=== PATIENT | female | born 1980 | race Caucasian/White ===

== ENCOUNTER 2016-12-12 10:10 | Emergency (ER) | payer MEDICARE, MEDICAID ==
[2016-12-12 10:33] VITALS: BP 141/92
[2016-12-12] MEDS ORDERED: Sodium Chloride 0.9% 1,000 ML IV SCH ×2 (11:00→11:20)
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
[2016-12-12] MEDS ORDERED: Ondansetron 4 MG/2 ML SDV IVPUSH PRN ×2 (11:39→13:34)
[2016-12-12] MEDS ORDERED: diphenhydrAMINE 50 MG/ML SDV IVPUSH ONE (12:12)
== END 2016-12-12 14:05 | disposition left against medical advice (07) ==
LOC: JP.ED 10:10
DX: R41.82 Altered mental status, unspecified (principal); F17.210 Nicotine dependence, cigarettes, uncomplicated; J45.909 Unspecified asthma, uncomplicated; E11.9 Type 2 diabetes mellitus without complications; F41.9 Anxiety disorder, unspecified; F32.9 Major depressive disorder, single episode, unspecified; F90.9 Attention-deficit hyperactivity disorder, unspecified type; Z90.49 Acquired absence of other specified parts of digestive tract; Z79.4 Long term (current) use of insulin; Z79.899 Other long term (current) drug therapy; Z88.8 Allergy status to other drugs, medicaments and biological substances
CPT/HCPCS: 36415; 80048; 80305; 82962; 83036; 85025; 96365; 96366; 96375; 99284; J1200; J2405; J7040

== ENCOUNTER 2017-09-12 15:17 | Inpatient (IN) | payer MEDICARE, MEDICAID ==
[2017-09-12] MEDS ORDERED: fentaNYL/Normal Saline 600 MCG/30 ML PCA Vial IV PRN (15:43)
[2017-09-12] MEDS ORDERED: Naloxone 0.4 MG/ML SDV IV PRN (15:43)
[2017-09-12] MEDS ORDERED: Dextrose 5%-Lactated Ringers 1,000 ML IV SCH (16:00)
[2017-09-12] MEDS ORDERED: SUMAtriptan 50 MG Tab PO PRN (16:09)
[2017-09-12] MEDS ORDERED: HYDROmorphone/Normal Saline 15 MG/30 ML PCA IV PRN (16:12)
--- NOTE | 2017-09-12 16:17 | PCM.SURGPN ---
- General Info Date of Service: 09/12/17 Date of Surgery/Procedure: 09/12/17 POD#: 0 Post-Op Diagnosis: Abscess left breast/axilla with cellulitis. - Patient Data Weight - Most Recent: 184 lb Lab Results Last 24 Hrs: Laboratory Results - last 24 hr 09/12/17 Range/Units 15:57 WBC 7.7 (4.5-11.0) K/uL RBC 4.67 (3.30-5.50) M/uL Hgb 14.9 (12.0-15.0) g/dL Hct 42.4 (36.0-48.0) % MCV 91 (80-98) fL MCH 32 H (27-31) pg MCHC 35 (32-36) % Plt Count 237 (150-400) K/uL Med Orders - Current: Current Medications Alprazolam (Xanax) 1 mg PO TID PRN PRN Reason: ANXIETY Benztropine Mesylate (Cogentin) 2 mg PO BEDTIME JUAN ANTONIO Carbamazepine (Tegretol Tab) 600 mg PO BEDTIME JUAN ANTONIO Hydromorphone HCl (Dilaudid Janitor 15 Mg In Ns 30 Ml) 0 mg IV ASDIRECTED PRN; Protocol PRN Reason: COLLAR WORKER PAIN CONTROL Dextrose/Lactated Ringer's (Dextrose 5%-Lactated Ringers) 1,000 mls @ 50 mls/ hr IV ASDIRECTED JUAN ANTONIO Ceftriaxone Sodium 2 gm/ (Sodium Chloride) 50 mls @ 100 mls/hr IV Q12H JUAN ANTONIO Naloxone HCl (Narcan) 0.1 mg IV ASDIRECTED PRN PRN Reason: RESP DISTRESS Olanzapine (Zyprexa) 15 mg PO BEDTIME JUAN ANTONIO Sumatriptan Succinate (Imitrex) 25 mg PO Q2H PRN PRN Reason: MIGRAINE HEADACHE - Problem List & Annotations (1) Cellulitis SNOMED Code(s): 991581340 Code(s): L03.90 - CELLULITIS, UNSPECIFIED Status: Acute Current Visit: Yes - Problem List Review Problem List Initiated/Reviewed/Updated: Yes - My Orders Last 24 Hours: Active Orders 24 hr Category Date Time Status Patient Status [ADT] Routine ADT 09/12/17 15:40 Active Activity as Tolerated [RC] .Routine Care 09/12/17 15:48 Active Overnight Pulse Oximetry [RC] Click to Edit Care 09/12/17 15:55 Active Vital Signs [RC] Q4H Care 09/12/17 15:48 Active Regular Diet [DIET] Diet 09/12/17 Dinner Active CBC W/O DIFF,HEMOGRAM [HEME] DAILY Lab 09/13/17 05:00 Ordered CBC W/O DIFF,HEMOGRAM [HEME] DAILY Lab 09/14/17 05:00 Ordered CBC W/O DIFF,HEMOGRAM [HEME] DAILY Lab 09/15/17 05:00 Ordered CBC W/O DIFF,HEMOGRAM [HEME] DAILY Lab 09/16/17 05:00 Ordered CBC W/O DIFF,HEMOGRAM [HEME] DAILY Lab 09/17/17 05:00 Ordered CBC W/O DIFF,HEMOGRAM [HEME] DAILY Lab 09/18/17 05:00 Ordered COMPREHENSIVE METABOLIC PN,CMP [CHEM] DAILY Lab 09/13/17 05:00 Ordered COMPREHENSIVE METABOLIC PN,CMP [CHEM] DAILY Lab 09/14/17 05:00 Ordered COMPREHENSIVE METABOLIC PN,CMP [CHEM] DAILY Lab 09/15/17 05:00 Ordered COMPREHENSIVE METABOLIC PN,CMP [CHEM] DAILY Lab 09/16/17 05:00 Ordered COMPREHENSIVE METABOLIC PN,CMP [CHEM] DAILY Lab 09/17/17 05:00 Ordered COMPREHENSIVE METABOLIC PN,CMP [CHEM] DAILY Lab 09/18/17 05:00 Ordered COMPREHENSIVE METABOLIC PN,CMP [CHEM] Routine Lab 09/12/17 15:57 Received ALPRAZolam [Xanax] Med 09/12/17 16:02 Active 1 mg PO TID PRN Benztropine [Cogentin] Med 09/12/17 21:00 Active 2 mg PO BEDTIME Dextrose 5%-Lactated Ringers 1,000 ml Med 09/12/17 16:00 Active IV ASDIRECTED HYDROmorphone/Normal Saline [Dilaudid COLLAR WORKER 15 MG in NS Med 09/12/17 16:12 Active 30 ML] 0 mg IV ASDIRECTED PRN Naloxone [Narcan] Med 09/12/17 15:43 Active 0.1 mg IV ASDIRECTED PRN OLANZapine [ZyPREXA] Med 09/12/17 21:00 Active 15 mg PO BEDTIME SUMAtriptan [Imitrex] Med 09/12/17 16:09 Active 25 mg PO Q2H PRN carBAMazepine [TEGretol Tab] Med 09/12/17 21:00 Active 600 mg PO BEDTIME cefTRIAXone [Rocephin] 2 gm Med 09/12/17 17:00 Active Sodium Chloride 0.9% [Normal Saline] 50 ml IV Q12H Pulse Oximetry Continuous Monitoring [OM.PC] Routine Oth 09/12/17 15:48 Ordered Resuscitation Status Routine Resus Stat 09/12/17 15:48 Ordered Medication Orders Alprazolam (Xanax) 1 mg PO TID PRN PRN Reason: ANXIETY Benztropine Mesylate (Cogentin) 2 mg PO BEDTIME JUAN ANTONIO Carbamazepine (Tegretol Tab) 600 mg PO BEDTIME JUAN ANTONIO Hydromorphone HCl (Dilaudid Janitor 15 Mg In Ns 30 Ml) 0 mg IV ASDIRECTED PRN; Protocol PRN Reason: COLLAR WORKER PAIN CONTROL Dextrose/Lactated Ringer's (Dextrose 5%-Lactated Ringers) 1,000 mls @ 50 mls/ hr IV ASDIRECTED JUAN ANTONIO Ceftriaxone Sodium 2 gm/ (Sodium Chloride) 50 mls @ 100 mls/hr IV Q12H JUAN ANTONIO Naloxone HCl (Narcan) 0.1 mg IV ASDIRECTED PRN PRN Reason: RESP DISTRESS Olanzapine (Zyprexa) 15 mg PO BEDTIME JUAN ANTONIO Sumatriptan Succinate (Imitrex) 25 mg PO Q2H PRN PRN Reason: MIGRAINE HEADACHE - Assessment Assessment (Free Text/Narrative):: Abscess with cellulitis left breast/axilla. - Plan Plan (Free Text/Narrative):: See the H & P scanned in from yesterday. She failed outpatient treatment so is admitted for IV Vancomycin and Rocephin. She is growing Staphylococcus aureus.
[2017-09-12] MEDS: cefTRIAXone 2 GM in Sodium Chloride 0.9% 50 ML IV SCH (17:07)
[2017-09-12] MEDS: Benztropine 1 MG Tab PO SCH (20:25)
[2017-09-12] MEDS: OLANZapine 5 MG Tab PO SCH (20:26)
[2017-09-12] MEDS: carBAMazepine 200 MG Tab PO SCH (20:26)
[2017-09-12] MEDS: QUEtiapine 100 MG Tab PO SCH (20:28)
[2017-09-12] MEDS: Nicotine 21 MG/24 Hr Patch TRDERM SCH (21:16)
[2017-09-13] MEDS: cefTRIAXone 2 GM in Sodium Chloride 0.9% 50 ML IV SCH (04:44)
--- NOTE | 2017-09-13 07:54 | PCM.SURGPN ---
- General Info Date of Service: 09/13/17 Date of Surgery/Procedure: 09/12/17 POD#: 1 Post-Op Diagnosis: Hidradenitis supurativa left axilla with cellulitis and abscess Functional Status: Reports: Pain Controlled, Tolerating Diet, Ambulating, Urinating - Review of Systems General: Reports: No Symptoms HEENT: Reports: No Symptoms Pulmonary: Reports: No Symptoms Cardiovascular: Reports: No Symptoms Gastrointestinal: Reports: No Symptoms Genitourinary: Reports: No Symptoms Musculoskeletal: Reports: No Symptoms Skin: Reports: Other (Pain in her left axilla is improved and does not bother her unless she moves. ) Neurological: Reports: No Symptoms Psychiatric: Reports: No Symptoms - Patient Data Vitals - Most Recent: Last Vital Signs Temp 97.3 F 09/13/17 07:13 Pulse 122 H 09/13/17 07:13 Resp 16 09/13/17 07:13 BP 118/82 09/13/17 07:13 Pulse Ox 90 L 09/13/17 07:30 Weight - Most Recent: 184 lb I&O - Last 24 Hours: Intake & Output 09/12/17 09/13/17 09/13/17 22:59 06:59 14:59 Intake Total 250 2358 Balance 250 2358 Lab Results Last 24 Hrs: Laboratory Results - last 24 hr 09/12/17 09/12/17 09/13/17 Range/Units 15:57 15:57 05:34 WBC 7.7 4.1 L (4.5-11.0) K/uL RBC 4.67 4.48 (3.30-5.50) M/uL Hgb 14.9 14.1 (12.0-15.0) g/dL Hct 42.4 41.2 (36.0-48.0) % MCV 91 92 (80-98) fL MCH 32 H 32 H (27-31) pg MCHC 35 34 (32-36) % Plt Count 237 234 (150-400) K/uL Sodium 133 L (140-148) mmol/L Potassium 3.7 (3.6-5.2) mmol/L Chloride 99 L (100-108) mmol/L Carbon Dioxide 22 (21-32) mmol/L Anion Gap 15.7 H (5.0-14.0) mmol/L BUN 4 L (7-18) mg/dL Creatinine 0.6 (0.6-1.0) mg/dL Est Cr Clr Drug Dosing 123.63 mL/min Estimated GFR (MDRD) > 60 (>60) Glucose 291 H (74-106) mg/dL Calcium 8.1 L (8.5-10.1) mg/dL Total Bilirubin 0.3 (0.2-1.0) mg/dL AST 16 (15-37) U/L ALT 20 (12-78) U/L Alkaline Phosphatase 168 H (46-116) U/L Total Protein 7.4 (6.4-8.2) g/dL Albumin 3.2 L (3.4-5.0) g/dL Globulin 4.2 H (2.3-3.5) g/dL Albumin/Globulin Ratio 0.8 L (1.2-2.2) 09/13/17 Range/Units 05:34 WBC (4.5-11.0) K/uL RBC (3.30-5.50) M/uL Hgb (12.0-15.0) g/dL Hct (36.0-48.0) % MCV (80-98) fL MCH (27-31) pg MCHC (32-36) % Plt Count (150-400) K/uL Sodium 135 L (140-148) mmol/L Potassium 4.2 (3.6-5.2) mmol/L Chloride 99 L (100-108) mmol/L Carbon Dioxide 27 (21-32) mmol/L Anion Gap 13.2 (5.0-14.0) mmol/L BUN 9 D (7-18) mg/dL Creatinine 0.6 (0.6-1.0) mg/dL Est Cr Clr Drug Dosing 123.30 mL/min Estimated GFR (MDRD) > 60 (>60) Glucose 326 H (74-106) mg/dL Calcium 8.3 L (8.5-10.1) mg/dL Total Bilirubin 0.4 (0.2-1.0) mg/dL AST 708 H D (15-37) U/L ALT 410 H (12-78) U/L Alkaline Phosphatase 635 H D (46-116) U/L Total Protein 6.7 (6.4-8.2) g/dL Albumin 2.8 L (3.4-5.0) g/dL Globulin 3.9 H (2.3-3.5) g/dL Albumin/Globulin Ratio 0.7 L (1.2-2.2) Med Orders - Current: Current Medications Alprazolam (Xanax) 1 mg PO TID PRN PRN Reason: ANXIETY Benztropine Mesylate (Cogentin) 2 mg PO BEDTIME [facility] Last Admin: 09/12/17 20:25 Dose: 2 mg Carbamazepine (Tegretol Tab) 600 mg PO BEDTIME [facility] Last Admin: 09/12/17 20:26 Dose: 600 mg Hydromorphone HCl (Dilaudid Phlebotomy Specialist 15 Mg In Ns 30 Ml) 0 mg IV ASDIRECTED PRN; Protocol PRN 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: PLUSH DRESSER 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 Last Admin: 09/12/17 16:23 Dose: 15 mg Dextrose/Lactated Ringer's (Dextrose 5%-Lactated Ringers) 1,000 mls @ 50 mls/ hr IV ASDIRECTED [facility] Ceftriaxone Sodium 2 gm/ (Sodium Chloride) 50 mls @ 100 mls/hr IV Q12H [facility] Last Admin: 09/13/17 04:44 Dose: 100 mls/hr Vancomycin HCl 1.25 gm/ Sodium (Chloride) 250 mls @ 167 mls/hr IV Q12H [facility] Last Admin: 09/13/17 05:47 Dose: 167 mls/hr Influenza Virus Vaccine (Fluzone Quad [id number]) 60 mcg IM .ONCE ONE Stop: 09/13/17 09:01 Naloxone HCl (Narcan) 0.1 mg IV ASDIRECTED PRN PRN Reason: RESP DISTRESS Nicotine (Habitrol) 21 mg TRDERM DAILY [facility] Last Admin: 09/12/17 21:16 Dose: 21 mg Olanzapine (Zyprexa) 15 mg PO BEDTIME [facility] Last Admin: 09/12/17 20:26 Dose: 15 mg Pneumococcal Polyvalent Vaccine (Pneumovax 23) 0.5 ml IM .ONCE ONE Stop: 09/15/17 09:01 Quetiapine Fumarate (Seroquel) 600 mg PO BEDTIME [facility] Last Admin: 09/12/17 20:28 Dose: 600 mg Quetiapine Fumarate (Seroquel) 200 mg PO BEDTIME [facility] Last Admin: 09/12/17 20:28 Dose: 200 mg Sumatriptan Succinate (Imitrex) 25 mg PO Q2H PRN PRN Reason: MIGRAINE HEADACHE Discontinued Medications Vancomycin HCl 1.5 gm/ Sodium (Chloride) 250 mls @ 167 mls/hr IV ONETIME ONE Stop: 09/12/17 19:29 Last Admin: 09/12/17 18:59 Dose: 167 mls/hr Influenza Virus Vaccine (Pharmacy To Dose - Influenza Vaccine) 1 each IM ONETIME ONE Stop: 09/15/17 09:01 - Exam Wound/Incisions: Drainage, Erythema Improving General: Alert, Oriented, Cooperative, No Acute Distress Lungs: Clear to Auscultation, Normal Respiratory Effort Cardiovascular: Regular Rate, Regular Rhythm GI/Abdominal Exam: Normal Bowel Sounds, Soft, Non-Tender Skin: Warm, Dry, Other (Packing removed from left axilla. No bleeding. Begin BID local wound care. ) Psy/Mental Status: Alert, Normal Affect, Normal Mood - Problem List & Annotations (1) Cellulitis SNOMED Code(s): 020457313 Code(s): L03.90 - CELLULITIS, UNSPECIFIED Status: Acute Current Visit: Yes - Problem List Review Problem List Initiated/Reviewed/Updated: Yes - My Orders Last 24 Hours: Active Orders 24 hr Category Date Time Status Patient Status [ADT] Routine ADT 09/12/17 15:40 Active Activity as Tolerated [RC] .Routine Care 09/12/17 15:48 Active Overnight Pulse Oximetry [RC] Click to Edit Care 09/12/17 15:55 Active Vital Signs [RC] Q4H Care 09/12/17 15:48 Active Regular Diet [DIET] Diet 09/12/17 Dinner Active CBC W/O DIFF,HEMOGRAM [HEME] DAILY Lab 09/14/17 05:00 Ordered CBC W/O DIFF,HEMOGRAM [HEME] DAILY Lab 09/15/17 05:00 Ordered CBC W/O DIFF,HEMOGRAM [HEME] DAILY Lab 09/16/17 05:00 Ordered CBC W/O DIFF,HEMOGRAM [HEME] DAILY Lab 09/17/17 05:00 Ordered CBC W/O DIFF,HEMOGRAM [HEME] DAILY Lab 09/18/17 05:00 Ordered COMPREHENSIVE METABOLIC PN,CMP [CHEM] DAILY Lab 09/14/17 05:00 Ordered COMPREHENSIVE METABOLIC PN,CMP [CHEM] DAILY Lab 09/15/17 05:00 Ordered COMPREHENSIVE METABOLIC PN,CMP [CHEM] DAILY Lab 09/16/17 05:00 Ordered COMPREHENSIVE METABOLIC PN,CMP [CHEM] DAILY Lab 09/17/17 05:00 Ordered COMPREHENSIVE METABOLIC PN,CMP [CHEM] DAILY Lab 09/18/17 05:00 Ordered VANCOMYCIN TROUGH [CHEM] Timed Lab 09/14/17 05:30 Ordered ALPRAZolam [Xanax] Med 09/12/17 16:02 Active 1 mg PO TID PRN Benztropine [Cogentin] Med 09/12/17 21:00 Active 2 mg PO BEDTIME Dextrose 5%-Lactated Ringers 1,000 ml Med 09/12/17 16:00 Active IV ASDIRECTED FLU Vacc [id number] 36Mos UP/PF [Fluzone Quad [id number]] Med 09/13/17 09:00 Once 60 mcg IM .ONCE ONE HYDROmorphone/Normal Saline [Dilaudid PLUSH DRESSER 15 MG in NS Med 09/12/17 16:12 Active 30 ML] 0 mg IV ASDIRECTED PRN Naloxone [Narcan] Med 09/12/17 15:43 Active 0.1 mg IV ASDIRECTED PRN Nicotine [Habitrol] Med 09/12/17 20:45 Active 21 mg TRDERM DAILY OLANZapine [ZyPREXA] Med 09/12/17 21:00 Active 15 mg PO BEDTIME Pneumococcal Polyvalent-23 Vac [Pneumovax 23] Med 09/15/17 09:00 Once 0.5 ml IM .ONCE ONE QUEtiapine [SEROquel] Med 09/12/17 21:00 Active 200 mg PO BEDTIME QUEtiapine [SEROquel] Med 09/12/17 21:00 Active 600 mg PO BEDTIME SUMAtriptan [Imitrex] Med 09/12/17 16:09 Active 25 mg PO Q2H PRN Vancomycin 1.25 gm Med 09/13/17 06:00 Active Sodium Chloride 0.9% [Normal Saline] 250 ml IV Q12H carBAMazepine [TEGretol Tab] Med 09/12/17 21:00 Active 600 mg PO BEDTIME cefTRIAXone [Rocephin] 2 gm Med 09/12/17 17:00 Active Sodium Chloride 0.9% [Normal Saline] 50 ml IV Q12H Pulse Oximetry Continuous Monitoring [OM.PC] Routine Oth 09/12/17 15:48 Ordered Resuscitation Status Routine Resus Stat 09/12/17 15:48 Ordered Medication Orders Alprazolam (Xanax) 1 mg PO TID PRN PRN Reason: ANXIETY Benztropine Mesylate (Cogentin) 2 mg PO BEDTIME [facility] Last Admin: 09/12/17 20:25 Dose: 2 mg Carbamazepine (Tegretol Tab) 600 mg PO BEDTIME [facility] Last Admin: 09/12/17 20:26 Dose: 600 mg Hydromorphone HCl (Dilaudid Phlebotomy Specialist 15 Mg In Ns 30 Ml) 0 mg IV ASDIRECTED PRN; Protocol PRN 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: PLUSH DRESSER PAIN 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 Last Admin: 09/12/17 16:23 Dose: 15 mg Dextrose/Lactated Ringer's (Dextrose 5%-Lactated Ringers) 1,000 mls @ 50 mls/ hr IV ASDIRECTED JUAN ANTONIO Ceftriaxone Sodium 2 gm/ (Sodium Chloride) 50 mls @ 100 mls/hr IV Q12H [facility] Last Admin: 09/13/17 04:44 Dose: 100 mls/hr Admin: 09/12/17 17:07 Dose: 100 mls/hr Vancomycin HCl 1.25 gm/ Sodium (Chloride) 250 mls @ 167 mls/hr IV Q12H [facility] Last Admin: 09/13/17 05:47 Dose: 167 mls/hr Influenza Virus Vaccine (Fluzone Quad [id number]) 60 mcg IM .ONCE ONE Stop: 09/13/17 09:01 Naloxone HCl (Narcan) 0.1 mg IV ASDIRECTED PRN PRN Reason: RESP DISTRESS Nicotine (Habitrol) 21 mg TRDERM DAILY [facility] Last Admin: 09/12/17 21:16 Dose: 21 mg Olanzapine (Zyprexa) 15 mg PO BEDTIME [facility] Last Admin: 09/12/17 20:26 Dose: 15 mg Pneumococcal Polyvalent Vaccine (Pneumovax 23) 0.5 ml IM .ONCE ONE Stop: 09/15/17 09:01 Quetiapine Fumarate (Seroquel) 600 mg PO BEDTIME [facility] Last Admin: 09/12/17 20:28 Dose: 600 mg Quetiapine Fumarate (Seroquel) 200 mg PO BEDTIME [facility] Last Admin: 09/12/17 20:28 Dose: 200 mg Sumatriptan Succinate (Imitrex) 25 mg PO Q2H PRN PRN Reason: MIGRAINE HEADACHE - Assessment Assessment (Free Text/Narrative):: Her blood sugars are running about 300--she says she is diabetic but is doing nothing about it. Today her LFT's are markedly abnormal, cause?? Her cellulitis is improving, her abscess cavity is open and not bleeding. - Plan Plan (Free Text/Narrative):: Begin BID local wound care. Saline lock IV, may shower. Continue antibiotics for now. Consult Hospitalist about DM and elevated LFT's.
[2017-09-13] MEDS: Nicotine 21 MG/24 Hr Patch TRDERM SCH (08:54)
[2017-09-13] MEDS: Ibuprofen 800 MG Tab PO SCH ×3 (08:54→23:49)
[2017-09-13] MEDS ORDERED: FLU Vacc QS 2017-18 (36mos UP)/PF 60 MCG/0.5 ML Syringe IM ONE (09:00)
[2017-09-13] MEDS ORDERED: Sodium Chloride 0.9% 1,000 ML IV SCH (09:45)
[2017-09-13] MEDS: ALPRAZolam 0.5 MG Tab PO PRN ×2 (09:45→20:45)
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
[2017-09-13] MEDS: HYDROmorphone 2 MG Tab PO PRN ×3 (10:59→21:16)
[2017-09-13] MEDS: Insulin Aspart 100 Units/ML 3 ML Pen SUBCUT SCH ×5 (12:18→21:12)
[2017-09-13] MEDS: QUEtiapine 100 MG Tab PO SCH (21:14)
[2017-09-13] MEDS: carBAMazepine 200 MG Tab PO SCH (21:15)
[2017-09-13] MEDS: Benztropine 1 MG Tab PO SCH (21:15)
[2017-09-13] MEDS: OLANZapine 5 MG Tab PO SCH (21:19)
[2017-09-14] MEDS: ALPRAZolam 0.5 MG Tab PO PRN ×3 (09:05→20:03)
[2017-09-14] MEDS: HYDROmorphone 2 MG Tab PO PRN (09:08)
[2017-09-14] MEDS: Nicotine 21 MG/24 Hr Patch TRDERM SCH (09:52)
[2017-09-14] MEDS: Ibuprofen 800 MG Tab PO SCH ×3 (09:52→23:06)
[2017-09-14] MEDS: Insulin Aspart 100 Units/ML 3 ML Pen SUBCUT SCH ×7 (09:56→21:22)
--- NOTE | 2017-09-14 09:57 | PCM.SURGPN ---
- General Info Date of Service: 09/14/17 Date of Surgery/Procedure: 09/12/17 POD#: 2 Post-Op Diagnosis: Hidradenitis suppurativa with abscess and cellulitis. Admission Diagnosis/Problem: Hidradenitis suppurativa of left axilla Functional Status: Reports: Pain Controlled, Tolerating Diet, Ambulating, Urinating - Review of Systems General: Reports: No Symptoms HEENT: Reports: No Symptoms Pulmonary: Reports: No Symptoms Cardiovascular: Reports: No Symptoms Gastrointestinal: Reports: No Symptoms Genitourinary: Reports: No Symptoms Musculoskeletal: Reports: No Symptoms Skin: Reports: Other (Pain continues to improve, still hurts with wound care. ) Neurological: Reports: No Symptoms Psychiatric: Reports: No Symptoms - Patient Data Vitals - Most Recent: Last Vital Signs Temp 96.8 F 09/14/17 07:07 Pulse 96 09/14/17 07:07 Resp 16 09/14/17 07:07 BP 115/80 09/14/17 07:07 Pulse Ox 94 L 09/14/17 07:07 Weight - Most Recent: 184 lb I&O - Last 24 Hours: Intake & Output 09/13/17 09/14/17 09/14/17 22:59 06:59 14:59 Intake Total 50 990 Balance 50 990 Lab Results Last 24 Hrs: Laboratory Results - last 24 hr 09/14/17 09/14/17 09/14/17 Range/Units 05:38 05:38 05:38 WBC 5.9 (4.5-11.0) K/uL RBC 4.46 (3.30-5.50) M/uL Hgb 14.2 (12.0-15.0) g/dL Hct 40.8 (36.0-48.0) % MCV 92 (80-98) fL MCH 32 H (27-31) pg MCHC 35 (32-36) % Plt Count 218 (150-400) K/uL Sodium 138 L (140-148) mmol/L Potassium 4.8 (3.6-5.2) mmol/L Chloride 104 (100-108) mmol/L Carbon Dioxide 26 (21-32) mmol/L Anion Gap 12.8 (5.0-14.0) mmol/L BUN 11 (7-18) mg/dL Creatinine 0.6 (0.6-1.0) mg/dL Est Cr Clr Drug Dosing 123.30 mL/min Estimated GFR (MDRD) > 60 (>60) Glucose 370 H (74-106) mg/dL Calcium 8.4 L (8.5-10.1) mg/dL Total Bilirubin 0.1 L D (0.2-1.0) mg/dL AST 110 H D (15-37) U/L ALT 254 H (12-78) U/L Alkaline Phosphatase 503 H (46-116) U/L Total Protein 6.2 L (6.4-8.2) g/dL Albumin 2.5 L (3.4-5.0) g/dL Globulin 3.7 H (2.3-3.5) g/dL Albumin/Globulin Ratio 0.7 L (1.2-2.2) Vancomycin Trough 4.0 L (10.0-20.0) ug/mL Med Orders - Current: Current Medications Alprazolam (Xanax) 1 mg PO TID PRN PRN Reason: ANXIETY Last Admin: 09/14/17 09:05 Dose: 1 mg Benztropine Mesylate (Cogentin) 2 mg PO BEDTIME [facility] Last Admin: 09/13/17 21:15 Dose: 2 mg Carbamazepine (Tegretol Tab) 600 mg PO BEDTIME [facility] Last Admin: 09/13/17 21:15 Dose: 600 mg Hydromorphone HCl (Dilaudid) 2 - 4 mg PO Q4H PRN PRN Reason: Pain Last Admin: 09/14/17 09:08 Dose: 4 mg Vancomycin HCl 1.25 gm/ Sodium (Chloride) 250 mls @ 167 mls/hr IV Q12H [facility] Last Admin: 09/14/17 06:09 Dose: 167 mls/hr Ibuprofen (Motrin) 800 mg PO Q8H [facility] Last Admin: 09/13/17 23:49 Dose: 800 mg Insulin Aspart (Novolog) 0 unit SUBCUT QIDACANDBED [facility] PRN Reason: Protocol Last Admin: 09/13/17 21:12 Dose: 9 units Insulin Aspart (Novolog) 5 unit SUBCUT TIDAC [facility] Last Admin: 09/13/17 17:45 Dose: 5 units Nicotine (Habitrol) 21 mg TRDERM DAILY [facility] Last Admin: 09/13/17 08:54 Dose: 21 mg Olanzapine (Zyprexa) 15 mg PO BEDTIME [facility] Last Admin: 09/13/17 21:19 Dose: 15 mg Pneumococcal Polyvalent Vaccine (Pneumovax 23) 0.5 ml IM .ONCE ONE Stop: 09/15/17 09:01 Quetiapine Fumarate (Seroquel) 600 mg PO BEDTIME [facility] Last Admin: 09/13/17 21:14 Dose: 600 mg Quetiapine Fumarate (Seroquel) 200 mg PO BEDTIME [facility] Last Admin: 09/13/17 21:14 Dose: 200 mg Sumatriptan Succinate (Imitrex) 25 mg PO Q2H PRN PRN Reason: MIGRAINE HEADACHE Discontinued Medications Hydromorphone HCl (Dilaudid [employer] Architect 15 Mg In Ns 30 Ml) 0 mg IV ASDIRECTED PRN; Protocol PRN 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: 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 Last Admin: 09/12/17 16:23 Dose: 15 mg Dextrose/Lactated Ringer's (Dextrose 5%-Lactated Ringers) 1,000 mls @ 50 mls/ hr IV ASDIRECTED [facility] Ceftriaxone Sodium 2 gm/ (Sodium Chloride) 50 mls @ 100 mls/hr IV Q12H [facility] Last Admin: 09/13/17 04:44 Dose: 100 mls/hr Vancomycin HCl 1.5 gm/ Sodium (Chloride) 250 mls @ 167 mls/hr IV ONETIME ONE Stop: 09/12/17 19:29 Last Admin: 09/12/17 18:59 Dose: 167 mls/hr Sodium Chloride (Normal Saline) 1,000 mls @ 500 mls/hr IV ASDIRECTED [facility] Stop: 09/13/17 11:46 Influenza Virus Vaccine (Pharmacy To Dose - Influenza Vaccine) 1 each IM ONETIME ONE Stop: 09/15/17 09:01 Influenza Virus Vaccine (Fluzone Quad [id number]) 60 mcg IM .ONCE ONE Stop: 09/13/17 09:01 Last Admin: 09/13/17 17:25 Dose: 60 mcg Naloxone HCl (Narcan) 0.1 mg IV ASDIRECTED PRN PRN Reason: RESP DISTRESS - Exam Wound/Incisions: Healing Well, Erythema Improving General: Alert, Oriented Lungs: Clear to Auscultation, Normal Respiratory Effort Cardiovascular: Regular Rate, Regular Rhythm GI/Abdominal Exam: Normal Bowel Sounds, Soft, Non-Tender, No Organomegaly, No Distention, No Abnormal Bruit, No Mass, Pelvis Stable Extremities: Normal Inspection, Normal Range of Motion, Non-Tender, No Pedal Edema, Normal Capillary Refill Skin: Warm, Dry, Other (Erythema improving. I & D site open.) Neurological: No New Focal Deficit, Normal Speech Psy/Mental Status: Alert, Normal Affect, Normal Mood - Problem List & Annotations (1) Cellulitis SNOMED Code(s): 232655577 Code(s): L03.90 - CELLULITIS, UNSPECIFIED Status: Acute Current Visit: Yes - Problem List Review Problem List Initiated/Reviewed/Updated: Yes - My Orders Last 24 Hours: Active Orders 24 hr Category Date Time Status Consult to Public Relations [employer] [Consult to Diabetic Nurse Cons 09/15/17 07:00 Active Specialist] [CONS] Routine CBC W/O DIFF,HEMOGRAM [HEME] DAILY Lab 09/15/17 05:00 Ordered CBC W/O DIFF,HEMOGRAM [HEME] DAILY Lab 09/16/17 05:00 Ordered CBC W/O DIFF,HEMOGRAM [HEME] DAILY Lab 09/17/17 05:00 Ordered CBC W/O DIFF,HEMOGRAM [HEME] DAILY Lab 09/18/17 05:00 Ordered COMPREHENSIVE METABOLIC PN,CMP [CHEM] DAILY Lab 09/15/17 05:00 Ordered COMPREHENSIVE METABOLIC PN,CMP [CHEM] DAILY Lab 09/16/17 05:00 Ordered COMPREHENSIVE METABOLIC PN,CMP [CHEM] DAILY Lab 09/17/17 05:00 Ordered COMPREHENSIVE METABOLIC PN,CMP [CHEM] DAILY Lab 09/18/17 05:00 Ordered GLUCOSE POC LAB TO COLLECT [POC] QIDACANDBED Lab 09/14/17 11:30 Ordered GLUCOSE POC LAB TO COLLECT [POC] QIDACANDBED Lab 09/14/17 16:30 Ordered GLUCOSE POC LAB TO COLLECT [POC] QIDACANDBED Lab 09/14/17 21:00 Ordered GLUCOSE POC LAB TO COLLECT [POC] QIDACANDBED Lab 09/15/17 07:30 Ordered GLUCOSE POC LAB TO COLLECT [POC] QIDACANDBED Lab 09/15/17 11:30 Ordered GLUCOSE POC LAB TO COLLECT [POC] QIDACANDBED Lab 09/15/17 16:30 Ordered GLUCOSE POC LAB TO COLLECT [POC] QIDACANDBED Lab 09/15/17 21:00 Ordered GLUCOSE POC LAB TO COLLECT [POC] QIDACANDBED Lab 09/16/17 07:30 Ordered GLUCOSE POC LAB TO COLLECT [POC] QIDACANDBED Lab 09/16/17 11:30 Ordered GLUCOSE POC LAB TO COLLECT [POC] QIDACANDBED Lab 09/16/17 16:30 Ordered GLUCOSE POC LAB TO COLLECT [POC] QIDACANDBED Lab 09/16/17 21:00 Ordered GLUCOSE POC LAB TO COLLECT [POC] QIDACANDBED Lab 09/17/17 07:30 Ordered GLUCOSE POC LAB TO COLLECT [POC] QIDACANDBED Lab 09/17/17 11:30 Ordered GLUCOSE POC LAB TO COLLECT [POC] QIDACANDBED Lab 09/17/17 16:30 Ordered GLUCOSE POC LAB TO COLLECT [POC] QIDACANDBED Lab 09/17/17 21:00 Ordered GLUCOSE POC LAB TO COLLECT [POC] QIDACANDBED Lab 09/18/17 07:30 Ordered GLUCOSE POC LAB TO COLLECT [POC] QIDACANDBED Lab 09/18/17 11:30 Ordered GLUCOSE POC LAB TO COLLECT [POC] QIDACANDBED Lab 09/18/17 16:30 Ordered Insulin Aspart [NovoLOG] Med 09/13/17 11:00 Active 5 unit SUBCUT TIDAC Insulin Aspart [NovoLOG] Med 09/13/17 11:00 Active See Protocol SUBCUT QIDACANDBED Pneumococcal Polyvalent-23 Vac [Pneumovax 23] Med 09/15/17 09:00 Once 0.5 ml IM .ONCE ONE SCD [Sequential Compression Device] [OM.PC] Routine Oth 09/13/17 11:19 Ordered Medication Orders Alprazolam (Xanax) 1 mg PO TID PRN PRN Reason: ANXIETY Last Admin: 09/14/17 09:05 Dose: 1 mg Admin: 09/13/17 20:45 Dose: 1 mg Admin: 09/13/17 09:45 Dose: 1 mg Benztropine Mesylate (Cogentin) 2 mg PO BEDTIME [facility] Last Admin: 09/13/17 21:15 Dose: 2 mg Admin: 09/12/17 20:25 Dose: 2 mg Carbamazepine (Tegretol Tab) 600 mg PO BEDTIME [facility] Last Admin: 09/13/17 21:15 Dose: 600 mg Admin: 09/12/17 20:26 Dose: 600 mg Hydromorphone HCl (Dilaudid) 2 - 4 mg PO Q4H PRN PRN Reason: Pain Last Admin: 09/14/17 09:08 Dose: 4 mg Admin: 09/13/17 21:16 Dose: 4 mg Admin: 09/13/17 17:22 Dose: 4 mg Admin: 09/13/17 10:59 Dose: 4 mg Vancomycin HCl 1.25 gm/ Sodium (Chloride) 250 mls @ 167 mls/hr IV Q12H [facility] Last Admin: 09/14/17 06:09 Dose: 167 mls/hr Admin: 09/13/17 17:22 Dose: 167 mls/hr Admin: 09/13/17 05:47 Dose: 167 mls/hr Ibuprofen (Motrin) 800 mg PO Q8H [facility] Last Admin: 09/13/17 23:49 Dose: 800 mg Admin: 09/13/17 15:25 Dose: 800 mg Admin: 09/13/17 08:54 Dose: 800 mg Insulin Aspart (Novolog) 0 unit SUBCUT QIDACANDBED [facility] PRN Reason: Protocol Last Admin: 09/13/17 21:12 Dose: 9 units Admin: 09/13/17 17:45 Dose: 9 units Admin: 09/13/17 12:20 Dose: 12 units Insulin Aspart (Novolog) 5 unit SUBCUT TIDAC [facility] Last Admin: 09/13/17 17:45 Dose: 5 units Admin: 09/13/17 12:18 Dose: 5 units Nicotine (Habitrol) 21 mg TRDERM DAILY [facility] Last Admin: 09/13/17 08:54 Dose: 21 mg Admin: 09/12/17 21:16 Dose: 21 mg Olanzapine (Zyprexa) 15 mg PO BEDTIME [facility] Last Admin: 09/13/17 21:19 Dose: 15 mg Admin: 09/12/17 20:26 Dose: 15 mg Pneumococcal Polyvalent Vaccine (Pneumovax 23) 0.5 ml IM .ONCE ONE Stop: 09/15/17 09:01 Quetiapine Fumarate (Seroquel) 600 mg PO BEDTIME [facility] Last Admin: 09/13/17 21:14 Dose: 600 mg Admin: 09/12/17 20:28 Dose: 600 mg Quetiapine Fumarate (Seroquel) 200 mg PO BEDTIME [facility] Last Admin: 09/13/17 21:14 Dose: 200 mg Admin: 09/12/17 20:28 Dose: 200 mg Sumatriptan Succinate (Imitrex) 25 mg PO Q2H PRN PRN Reason: MIGRAINE HEADACHE - Assessment Assessment (Free Text/Narrative):: Appreciate Dr. Cook help. She is being treated for DM. Her LFT's are improving. Her hidradinitis suppurativa is improving. Culture is Staph aureaus sensitive to all antibiotics tested except PCN. - Plan Plan (Free Text/Narrative):: No change from me.
[2017-09-14] MEDS ORDERED: Insulin Detemir 100 Units/ML 3 ML Pen SUBCUT SCH (10:00)
--- NOTE | 2017-09-14 12:29 | PCM.CONSN ---
- General Info Date of Service: 09/14/17 Functional Status: Reports: Pain Controlled, Tolerating Diet - Review of Systems General: Denies: Fever Musculoskeletal: Reports: Arm Pain Systems Review Comment:: No acute events overnight. Heart rate has decreased to the normal range. She has not had any fevers. Cellulitis is improving. Left axillary pain has been improving. AST, ALTs and alkaline phosphatase are all better today but not normal. Wound culture is growing MSSA. Blood sugars remain elevated but are slowly improving. - Patient Data Vitals - Most Recent: Last Vital Signs Temp 36.0 C 09/14/17 11:28 Pulse 101 H 09/14/17 11:28 Resp 16 09/14/17 11:28 BP 106/70 09/14/17 11:28 Pulse Ox 93 L 09/14/17 11:28 Weight - Most Recent: 83.461 kg I&O - Last 24 Hours: Intake & Output 09/13/17 09/14/17 09/14/17 22:59 06:59 14:59 Intake Total 50 990 960 Balance 50 990 960 Lab Results Last 24 Hours: Laboratory Results - last 24 hr 09/14/17 09/14/17 09/14/17 Range/Units 05:38 05:38 05:38 WBC 5.9 (4.5-11.0) K/uL RBC 4.46 (3.30-5.50) M/uL Hgb 14.2 (12.0-15.0) g/dL Hct 40.8 (36.0-48.0) % MCV 92 (80-98) fL MCH 32 H (27-31) pg MCHC 35 (32-36) % Plt Count 218 (150-400) K/uL Sodium 138 L (140-148) mmol/L Potassium 4.8 (3.6-5.2) mmol/L Chloride 104 (100-108) mmol/L Carbon Dioxide 26 (21-32) mmol/L Anion Gap 12.8 (5.0-14.0) mmol/L BUN 11 (7-18) mg/dL Creatinine 0.6 (0.6-1.0) mg/dL Est Cr Clr Drug Dosing 123.30 mL/min Estimated GFR (MDRD) > 60 (>60) Glucose 370 H (74-106) mg/dL Calcium 8.4 L (8.5-10.1) mg/dL Total Bilirubin 0.1 L D (0.2-1.0) mg/dL AST 110 H D (15-37) U/L ALT 254 H (12-78) U/L Alkaline Phosphatase 503 H (46-116) U/L Total Protein 6.2 L (6.4-8.2) g/dL Albumin 2.5 L (3.4-5.0) g/dL Globulin 3.7 H (2.3-3.5) g/dL Albumin/Globulin Ratio 0.7 L (1.2-2.2) Vancomycin Trough 4.0 L (10.0-20.0) ug/mL Med Orders - Current: Current Medications Hydrocodone Bitart/Acetaminophen ([place] 325-5 Mg) 1 - 2 tab PO Q4H PRN PRN Reason: Pain Alprazolam (Xanax) 1 mg PO TID PRN PRN Reason: ANXIETY Last Admin: 09/14/17 09:05 Dose: 1 mg Benztropine Mesylate (Cogentin) 2 mg PO BEDTIME [facility] Last Admin: 09/13/17 21:15 Dose: 2 mg Carbamazepine (Tegretol Tab) 600 mg PO BEDTIME [facility] Last Admin: 09/13/17 21:15 Dose: 600 mg Clindamycin HCl (Cleocin) 600 mg PO Q8H [facility] Clindamycin Phosphate 600 mg/ (Sodium Chloride) 54 mls @ 100 mls/hr IV Q8H [facility] Stop: 09/14/17 23:33 Ibuprofen (Motrin) 800 mg PO Q8H [facility] Last Admin: 09/14/17 09:52 Dose: 800 mg Insulin Aspart (Novolog) 0 unit SUBCUT QIDACANDBED [facility] PRN Reason: Protocol Last Admin: 09/14/17 12:16 Dose: 20 units Insulin Aspart (Novolog) 5 unit SUBCUT TIDAC [facility] Last Admin: 09/14/17 12:15 Dose: 5 units Insulin Detemir (Levemir) 30 unit SUBCUT DAILY [facility] Last Admin: 09/14/17 12:14 Dose: 30 units Nicotine (Habitrol) 21 mg TRDERM DAILY [facility] Last Admin: 09/14/17 09:52 Dose: 21 mg Olanzapine (Zyprexa) 15 mg PO BEDTIME [facility] Last Admin: 09/13/17 21:19 Dose: 15 mg Pneumococcal Polyvalent Vaccine (Pneumovax 23) 0.5 ml IM .ONCE ONE Stop: 09/15/17 09:01 Quetiapine Fumarate (Seroquel) 600 mg PO BEDTIME [facility] Last Admin: 09/13/17 21:14 Dose: 600 mg Quetiapine Fumarate (Seroquel) 200 mg PO BEDTIME [facility] Last Admin: 09/13/17 21:14 Dose: 200 mg Sumatriptan Succinate (Imitrex) 25 mg PO Q2H PRN PRN Reason: MIGRAINE HEADACHE Discontinued Medications Hydromorphone HCl (Dilaudid Dialysis Clinical Manager 15 Mg In Ns 30 Ml) 0 mg IV ASDIRECTED PRN; Protocol PRN 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: 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 ORDER 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 Last Admin: 09/12/17 16:23 Dose: 15 mg Hydromorphone HCl (Dilaudid) 2 - 4 mg PO Q4H PRN PRN Reason: Pain Last Admin: 09/14/17 09:08 Dose: 4 mg Dextrose/Lactated Ringer's (Dextrose 5%-Lactated Ringers) 1,000 mls @ 50 mls/ hr IV ASDIRECTED [facility] Ceftriaxone Sodium 2 gm/ (Sodium Chloride) 50 mls @ 100 mls/hr IV Q12H [facility] Last Admin: 09/13/17 04:44 Dose: 100 mls/hr Vancomycin HCl 1.5 gm/ Sodium (Chloride) 250 mls @ 167 mls/hr IV ONETIME ONE Stop: 09/12/17 19:29 Last Admin: 09/12/17 18:59 Dose: 167 mls/hr Vancomycin HCl 1.25 gm/ Sodium (Chloride) 250 mls @ 167 mls/hr IV Q12H [facility] Last Admin: 09/14/17 06:09 Dose: 167 mls/hr Sodium Chloride (Normal Saline) 1,000 mls @ 500 mls/hr IV ASDIRECTED [facility] Stop: 09/13/17 11:46 Influenza Virus Vaccine (Pharmacy To Dose - Influenza Vaccine) 1 each IM ONETIME ONE Stop: 09/15/17 09:01 Influenza Virus Vaccine (Fluzone Quad [id number]) 60 mcg IM .ONCE ONE Stop: 09/13/17 09:01 Last Admin: 09/13/17 17:25 Dose: 60 mcg Naloxone HCl (Narcan) 0.1 mg IV ASDIRECTED PRN PRN Reason: RESP DISTRESS - Exam Quality Assessment: No: Supplemental Oxygen General: Alert, Oriented, Cooperative, No Acute Distress Neck: Supple Lungs: Normal Respiratory Effort GI/Abdominal Exam: No Distention Extremities: Other (left axilla with 1 cm wound containing packing. There is mild purulent drainage. There is mild surrounding erythema. Erythema well within marked boundaries) Skin: Warm, Dry Psy/Mental Status: Alert, Normal Affect Consult PN Assessment/Plan Procedures: Procedures ASSAY ALKALINE PHOSPHATASE (02/21/14) ASSAY OF AMYLASE (03/07/15) ASSAY OF LACTIC ACID (02/06/15) ASSAY OF LIPASE (03/07/15) BILIRUBIN TOTAL (02/21/14) BLOOD GASES ANY COMBINATION (10/26/14) COMPLETE CBC AUTOMATED (02/21/14) COMPLETE CBC W/AUTO DIFF WBC (12/12/16) COMPREHEN METABOLIC PANEL (03/07/15) CT ABD & PELV W/CONTRAST (02/06/15) CULTURE SCREEN ONLY (02/21/14) DRUG TEST PRSMV DIR OPT OBS (12/12/16) ECHO EXAM OF ABDOMEN (02/21/14) EMERGENCY DEPT VISIT (12/12/16) EMERGENCY DEPT VISIT (03/07/15) EMERGENCY DEPT VISIT (03/07/15) EMERGENCY DEPT VISIT (02/06/15) EMERGENCY DEPT VISIT (02/06/15) EMERGENCY DEPT VISIT (10/26/14) EMERGENCY DEPT VISIT (10/26/14) EMERGENCY DEPT VISIT (03/05/14) EMERGENCY DEPT VISIT (03/05/14) EMERGENCY DEPT VISIT (02/21/14) EMERGENCY DEPT VISIT (02/18/14) EMERGENCY DEPT VISIT (02/18/14) GLUCOSE BLOOD TEST (12/12/16) GLYCOSYLATED HEMOGLOBIN TEST (12/12/16) HEPATOBIL SYST IMAGE W/DRUG (02/21/14) HYDRATE IV INFUSION ADD-ON (03/07/15) MEASURE BLOOD OXYGEN LEVEL (02/21/14) METABOLIC PANEL TOTAL CA (12/12/16) REAGENT STRIP/BLOOD GLUCOSE (03/05/14) ROUTINE VENIPUNCTURE (12/12/16) TEST FOR ACETONE/KETONES (10/26/14) THER/PROPH/DIAG INJ IV PUSH (03/07/15) THER/PROPH/DIAG INJ SC/IM (05/26/16) THER/PROPH/DIAG IV INF ADDON (12/12/16) THER/PROPH/DIAG IV INF INIT (12/12/16) TX/PRO/DX INJ NEW DRUG ADDON (12/12/16) TX/PRO/DX INJ SAME DRUG 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 (02/06/15) URINALYSIS AUTO W/SCOPE (05/26/16) URINE TEST (02/06/15) X-RAY EXAM OF ABDOMEN (02/21/14) Problem List Initiated/Reviewed/Updated: Yes My Orders Last 24 Hours: My Active Orders 09/14/17 10:00 Insulin Detemir [Levemir] 30 unit SUBCUT DAILY 09/14/17 12:26 Acetaminophen/HYDROcodone [[place] 325-5 MG] 1 - 2 tab PO Q4H PRN 09/14/17 15:00 Clindamycin Phosphate [Cleocin] 600 mg Sodium Chloride 0.9% [Normal Saline] 50 ml IV Q8H 09/14/17 16:30 GLUCOSE POC LAB TO COLLECT [POC] QIDACANDBED 09/14/17 21:00 GLUCOSE POC LAB TO COLLECT [POC] QIDACANDBED 09/15/17 07:00 Consult to General Scrap Worker [Consult to Diabetic Nurse Specialist] [CONS] Routine 09/15/17 07:30 GLUCOSE POC LAB TO COLLECT [POC] QIDACANDBED 09/15/17 08:00 Clindamycin HCl [Cleocin] 600 mg PO Q8H 09/15/17 11:30 GLUCOSE POC LAB TO COLLECT [POC] QIDACANDBED 09/15/17 16:30 GLUCOSE POC LAB TO COLLECT [POC] QIDACANDBED 09/15/17 21:00 GLUCOSE POC LAB TO COLLECT [POC] QIDACANDBED 09/16/17 07:30 GLUCOSE POC LAB TO COLLECT [POC] QIDACANDBED 09/16/17 11:30 GLUCOSE POC LAB TO COLLECT [POC] QIDACANDBED 09/16/17 16:30 GLUCOSE POC LAB TO COLLECT [POC] QIDACANDBED 09/16/17 21:00 GLUCOSE POC LAB TO COLLECT [POC] QIDACANDBED 09/17/17 07:30 GLUCOSE POC LAB TO COLLECT [POC] QIDACANDBED 09/17/17 11:30 GLUCOSE POC LAB TO COLLECT [POC] QIDACANDBED 09/17/17 16:30 GLUCOSE POC LAB TO COLLECT [POC] QIDACANDBED 09/17/17 21:00 GLUCOSE POC LAB TO COLLECT [POC] QIDACANDBED 09/18/17 07:30 GLUCOSE POC LAB TO COLLECT [POC] QIDACANDBED 09/18/17 11:30 GLUCOSE POC LAB TO COLLECT [POC] QIDACANDBED 09/18/17 16:30 GLUCOSE POC LAB TO COLLECT [POC] QIDACANDBED Plan: ASSESSMENT AND PLAN - Cellulitis and abscess of left axilla - culture from the clinic is growing MSSA. Clinically improving with near resolution of the cellulitis. Still has wound packing in place. No fevers. Pain tolerable. -Change antibiotics to clindamycin, IV tonight and switched to oral in the morning -Pain control with hydrocodone and ibuprofen -Encourage yogurt or probiotic after hospital discharge Acute transaminitis - Significant elevation of AST, ALT and alkaline phosphatase. Suspect medication reaction with Bactrim being the most likely culprit. levels have improved significantly overnight but are not quite normal. Right upper quadrant ultrasound was normal. -Bactrim added to allergy list -Repeat labs in the morning Insulin-dependent diabetes mellitus - hemoglobin A1c is 10.1. sugars remained elevated but seem a little better today. -Mealtime insulin 5 units per meal -High-dose sliding scale insulin -Start long-acting insulin in the today at 30 units (previous home dose was 40 units daily) -Diabetes education on Friday -Patient will need a new glucose meter prior to discharge as well as supplies Hayes Cook M.D.
[2017-09-14] MEDS: Acetaminophen/HYDROcodone 325-5 MG Tab PO PRN ×2 (13:58→20:01)
[2017-09-14] MEDS: Benztropine 1 MG Tab PO SCH (21:23)
[2017-09-14] MEDS: QUEtiapine 100 MG Tab PO SCH (21:24)
[2017-09-14] MEDS: carBAMazepine 200 MG Tab PO SCH (21:25)
[2017-09-14] MEDS: OLANZapine 5 MG Tab PO SCH (21:25)
[2017-09-15] MEDS: Acetaminophen/HYDROcodone 325-5 MG Tab PO PRN ×3 (01:14→12:25)
[2017-09-15] MEDS: ALPRAZolam 0.5 MG Tab PO PRN ×2 (07:29→14:10)
[2017-09-15] MEDS: Insulin Aspart 100 Units/ML 3 ML Pen SUBCUT SCH ×4 (07:31→12:20)
[2017-09-15] MEDS: Ibuprofen 800 MG Tab PO SCH (07:33)
[2017-09-15] MEDS ORDERED: Clindamycin HCl 150 MG Cap PO SCH (08:00)
[2017-09-15] MEDS ORDERED: Insulin Detemir 100 Units/ML 3 ML Pen SUBCUT SCH (08:56)
[2017-09-15] MEDS ORDERED: Pneumococcal Polyvalent-23 Vaccine 0.5 ML SDV IM ONE (09:00)
--- NOTE | 2017-09-15 09:13 | US ---
Ultrasound RUQ The liver is homogeneous. There is normal echogenicity. No focal hepatic lesions are demonstrated. Th e liver measures 17 cm in length. The gallbladder is surgically absent. The common bile duct measures within normal limits measuring 4 mm. The visualized portions of the pancreas are unremarkable. The r ight kidney is normal in size. There is no hydronephrosis. There are no stones seen. The abdominal ao rta and IVC are unremarkable. Impression: 1. Prior cholecystectomy. 2. Negative exam of the liver.
[2017-09-15] MEDS: Nicotine 21 MG/24 Hr Patch TRDERM SCH (09:51)
[2017-09-15 11:05] VITALS: BP 117/87
[2017-09-15] MEDS ORDERED: Lactobacillus Rhamnosus GG (Probiotic) Cap PO SCH (12:00)
--- NOTE | 2017-09-15 12:24 | PCM.CONSN ---
- General Info Date of Service: 09/15/17 Subjective Update: This patient is a 37-year-old woman who was admitted by Dr. Olivia with cellulitis the left axilla related to underlying abscess that it been drained the day prior to admission. She is feeling better with significant improvement in cellulitis on current therapy with clindamycin. Blood sugars have remained somewhat variable although she has not necessarily been following a strict consistent carb diet. - Patient Data Vitals - Most Recent: Last Vital Signs Temp 96.1 F 09/15/17 11:00 Pulse 102 H 09/15/17 11:00 Resp 18 09/15/17 11:00 BP 117/87 09/15/17 11:00 Pulse Ox 94 L 09/15/17 11:00 Weight - Most Recent: 184 lb I&O - Last 24 Hours: Intake & Output 09/14/17 09/15/17 09/15/17 22:59 06:59 14:59 Intake Total 1030 740 480 Balance 1030 740 480 Lab Results Last 24 Hours: Laboratory Results - last 24 hr 09/15/17 09/15/17 Range/Units 04:50 04:50 WBC 5.8 (4.5-11.0) K/uL RBC 4.48 (3.30-5.50) M/uL Hgb 14.0 (12.0-15.0) g/dL Hct 41.3 (36.0-48.0) % MCV 92 (80-98) fL MCH 31 (27-31) pg MCHC 34 (32-36) % Plt Count 258 (150-400) K/uL Sodium 137 L (140-148) mmol/L Potassium 4.6 (3.6-5.2) mmol/L Chloride 100 (100-108) mmol/L Carbon Dioxide 28 (21-32) mmol/L Anion Gap 13.6 (5.0-14.0) mmol/L BUN 15 (7-18) mg/dL Creatinine 0.6 (0.6-1.0) mg/dL Est Cr Clr Drug Dosing 123.30 mL/min Estimated GFR (MDRD) > 60 (>60) Glucose 384 H (74-106) mg/dL Calcium 8.7 (8.5-10.1) mg/dL Total Bilirubin 0.1 L (0.2-1.0) mg/dL AST 46 H (15-37) U/L ALT 180 H (12-78) U/L Alkaline Phosphatase 431 H (46-116) U/L Total Protein 6.4 (6.4-8.2) g/dL Albumin 2.7 L (3.4-5.0) g/dL Globulin 3.7 H (2.3-3.5) g/dL Albumin/Globulin Ratio 0.7 L (1.2-2.2) Med Orders - Current: Current Medications Hydrocodone Bitart/Acetaminophen ([place] 325-5 Mg) 1 - 2 tab PO Q4H PRN PRN Reason: Pain Last Admin: 09/15/17 06:09 Dose: 2 tab Alprazolam (Xanax) 1 mg PO TID PRN PRN Reason: ANXIETY Last Admin: 09/15/17 07:29 Dose: 1 mg Benztropine Mesylate (Cogentin) 2 mg PO BEDTIME [facility] Last Admin: 09/14/17 21:23 Dose: 2 mg Carbamazepine (Tegretol Tab) 600 mg PO BEDTIME [facility] Last Admin: 09/14/17 21:25 Dose: 600 mg Clindamycin HCl (Cleocin) 600 mg PO Q8H [facility] Last Admin: 09/15/17 07:33 Dose: 600 mg Ibuprofen (Motrin) 800 mg PO Q8H [facility] Last Admin: 09/15/17 07:33 Dose: 800 mg Insulin Aspart (Novolog) 0 unit SUBCUT QIDACANDBED [facility] PRN Reason: Protocol Last Admin: 09/15/17 12:20 Dose: 3 units Insulin Aspart (Novolog) 5 unit SUBCUT TIDAC [facility] Last Admin: 09/15/17 12:20 Dose: 5 units Insulin Detemir (Levemir) 40 unit SUBCUT DAILY [facility] Last Admin: 09/15/17 09:52 Dose: 40 units Lactobacillus Rhamnosus (Culturelle) 2 cap PO BID [facility] Nicotine (Habitrol) 21 mg TRDERM DAILY [facility] Last Admin: 09/15/17 09:51 Dose: Not Given Olanzapine (Zyprexa) 15 mg PO BEDTIME [facility] Last Admin: 09/14/17 21:25 Dose: 15 mg Quetiapine Fumarate (Seroquel) 600 mg PO BEDTIME [facility] Last Admin: 09/14/17 21:24 Dose: 600 mg Quetiapine Fumarate (Seroquel) 200 mg PO BEDTIME [facility] Last Admin: 09/14/17 21:24 Dose: 200 mg Sumatriptan Succinate (Imitrex) 25 mg PO Q2H PRN PRN Reason: MIGRAINE HEADACHE Discontinued Medications Hydromorphone HCl (Dilaudid Stationary Boiler Fireman 15 Mg In Ns 30 Ml) 0 mg IV ASDIRECTED PRN; Protocol PRN 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 Last Admin: 09/12/17 16:23 Dose: 15 mg Hydromorphone HCl (Dilaudid) 2 - 4 mg PO Q4H PRN PRN Reason: Pain Last Admin: 09/14/17 09:08 Dose: 4 mg Dextrose/Lactated Ringer's (Dextrose 5%-Lactated Ringers) 1,000 mls @ 50 mls/ hr IV ASDIRECTED [facility] Ceftriaxone Sodium 2 gm/ (Sodium Chloride) 50 mls @ 100 mls/hr IV Q12H [facility] Last Admin: 09/13/17 04:44 Dose: 100 mls/hr Vancomycin HCl 1.5 gm/ Sodium (Chloride) 250 mls @ 167 mls/hr IV ONETIME ONE Stop: 09/12/17 19:29 Last Admin: 09/12/17 18:59 Dose: 167 mls/hr Vancomycin HCl 1.25 gm/ Sodium (Chloride) 250 mls @ 167 mls/hr IV Q12H [facility] Last Admin: 09/14/17 06:09 Dose: 167 mls/hr Sodium Chloride (Normal Saline) 1,000 mls @ 500 mls/hr IV ASDIRECTED [facility] Stop: 09/13/17 11:46 Clindamycin Phosphate 600 mg/ (Sodium Chloride) 54 mls @ 100 mls/hr IV Q8H [facility] Stop: 09/14/17 23:33 Last Admin: 09/14/17 22:21 Dose: 100 mls/hr Influenza Virus Vaccine (Pharmacy To Dose - Influenza Vaccine) 1 each IM ONETIME ONE Stop: 09/15/17 09:01 Influenza Virus Vaccine (Fluzone Quad 4781-0359) 60 mcg IM .ONCE ONE Stop: 09/13/17 09:01 Last Admin: 09/13/17 17:25 Dose: 60 mcg Insulin Detemir (Levemir) 30 unit SUBCUT DAILY [facility] Last Admin: 09/14/17 12:14 Dose: 30 units Naloxone HCl (Narcan) 0.1 mg IV ASDIRECTED PRN PRN Reason: RESP DISTRESS Pneumococcal Polyvalent Vaccine (Pneumovax 23) 0.5 ml IM .ONCE ONE Stop: 09/15/17 09:01 Last Admin: 09/15/17 10:10 Dose: 0.5 ml - Exam Quality Assessment: DVT Prophylaxis General: Alert, Oriented, Cooperative, No Acute Distress Lungs: Clear to Auscultation, Normal Respiratory Effort Cardiovascular: Regular Rate, Regular Rhythm, No Murmurs GI/Abdominal Exam: Soft, Non-Tender, No Organomegaly, No Distention Extremities: Non-Tender, No Pedal Edema Skin: Other (Area of cellulitis appears to resolved) Consult PN Assessment/Plan Procedures: Procedures ASSAY ALKALINE PHOSPHATASE (02/21/14) ASSAY OF AMYLASE (03/07/15) ASSAY OF LACTIC ACID (02/06/15) ASSAY OF LIPASE (03/07/15) BILIRUBIN TOTAL (02/21/14) BLOOD GASES ANY COMBINATION (10/26/14) COMPLETE CBC AUTOMATED (02/21/14) COMPLETE CBC W/AUTO DIFF WBC (12/12/16) COMPREHEN METABOLIC PANEL (03/07/15) CT ABD & PELV W/CONTRAST (02/06/15) CULTURE SCREEN ONLY (02/21/14) DRUG TEST PRSMV DIR OPT OBS (12/12/16) ECHO EXAM OF ABDOMEN (02/21/14) EMERGENCY DEPT VISIT (12/12/16) EMERGENCY DEPT VISIT (03/07/15) EMERGENCY DEPT VISIT (03/07/15) EMERGENCY DEPT VISIT (02/06/15) EMERGENCY DEPT VISIT (02/06/15) EMERGENCY DEPT VISIT (10/26/14) EMERGENCY DEPT VISIT (10/26/14) EMERGENCY DEPT VISIT (03/05/14) EMERGENCY DEPT VISIT (03/05/14) EMERGENCY DEPT VISIT (02/21/14) EMERGENCY DEPT VISIT (02/18/14) EMERGENCY DEPT VISIT (02/18/14) GLUCOSE BLOOD TEST (12/12/16) GLYCOSYLATED HEMOGLOBIN TEST (12/12/16) HEPATOBIL SYST IMAGE W/DRUG (02/21/14) HYDRATE IV INFUSION ADD-ON (03/07/15) MEASURE BLOOD OXYGEN LEVEL (02/21/14) METABOLIC PANEL TOTAL CA (12/12/16) REAGENT STRIP/BLOOD GLUCOSE (03/05/14) ROUTINE VENIPUNCTURE (12/12/16) TEST FOR ACETONE/KETONES (10/26/14) THER/PROPH/DIAG INJ IV PUSH (03/07/15) THER/PROPH/DIAG INJ SC/IM (05/26/16) THER/PROPH/DIAG IV INF ADDON (12/12/16) THER/PROPH/DIAG IV INF INIT (12/12/16) TX/PRO/DX INJ NEW DRUG ADDON (12/12/16) TX/PRO/DX INJ SAME DRUG RESOURCE ECONOMIST (02/06/15) URINALYSIS AUTO W/SCOPE (05/26/16) URINE TEST (02/06/15) X-RAY EXAM OF ABDOMEN (02/21/14) Problem List Initiated/Reviewed/Updated: Yes My Orders Last 24 Hours: My Active Orders 09/15/17 08:56 Insulin Detemir [Levemir] 40 unit SUBCUT DAILY 09/15/17 12:00 Lactobacillus Rhamnosus GG [Culturelle] 2 cap PO BID Plan: ASSESSMENT AND PLAN - Cellulitis and abscess of left axilla - culture from the clinic is growing MSSA. Cellulitis has resolved, wound packing in place -Discharged home on oral clindamycin -Pain control with hydrocodone and ibuprofen -Probiotic 2 tablets twice daily Acute transaminitis - Significant elevation of AST, ALT and alkaline phosphatase. Suspect medication reaction with Bactrim being the most likely culprit, enzyme levels have shown further improvement over the past 24 hours but had not normalized -Bactrim added to allergy list -Repeat labs in the morning Insulin-dependent diabetes mellitus - hemoglobin A1c is 10.1. sugars remained elevated but seem a little better today. -Mealtime insulin 5 units per meal -High-dose sliding scale insulin -Increase long-acting insulin to 40 units today -Diabetes education on Friday -Patient will need a new glucose meter prior to discharge as well as supplies
--- NOTE | 2017-09-15 14:12 | PCM.DCSUM1 ---
Discharge Summary - Hospital Course Free Text/Narrative:: This 37 year old white female had a left axilla abscess consistent with hidradenitis supprativa. It was lanced on four days ago and surgery was consulted the next day. Despite starting Bactrim, her cellulitis worsened when I say her three days ago. We performed an I & D and admitted for IV antibiotics. Staph edda was diagnosed. We started Vancomycin and Rocephin. After final cultures came back with NO MRSA, she was changed to clindamycin. Her LFT's became markedly abnormal (except for a normal bilirubin) so the hospitlist was consulted. He LFT's improved and it was though secondary to her Bactrim. She currently is undergoing BID local wound care which she can perform. Her cellulitis is markedly improved. She is a diabetic and has not been treating it. Her H A1C was over 10. She has worked with dietary and is back on insulin. She is discharge to home at this time. - Discharge Data Discharge Date: 09/15/17 Discharge Disposition: Home, Self-Care 01 Condition: Good - Discharge Diagnosis/Problem(s) (1) Cellulitis SNOMED Code(s): 994530135 ICD Code: L03.90 - CELLULITIS, UNSPECIFIED Status: Acute Current Visit: Yes Qualifiers: Site of cellulitis: extremity Site of cellulitis of extremity: axilla Laterality: left Qualified Code(s): L03.112 - Cellulitis of left axilla - Patient Summary/Data Operative Procedure(s) Performed: Outpatient I and D of left axilla. Consults: Consultations 09/13/17 07:35 Consult to Pharmacy [CONS] Routine Comment: Physician Instructions: Quantity: Reason for Consult: elevation in liver enzymes Person Notified: Mag Date Notified: 09/13/17 Time Notified: 07:52 Consult to Physician [CONS] Routine Consulting Provider: Shane Olivia Courtesy Call Completed to Consulting Physician: Yes Reason for Consult: elevated liver enzymes and DM Person Notified: Dr. Cook Special Instructions: Notified by Dr. Olivia 09/15/17 07:00 Consult to [employer] [Consult to Diabetic Nurse Specialist] [CONS] Routine Comment: Physician Instructions: no meter at home, cannot check sugars so no meds Reason for Consult: meter? Hospital Course: See above narrative. - Patient Instructions Diet: Diabetic Diet Activity, Other: BID local wound care as instructed left axilla. Driving, Other: Do not drive while taking narcotic pain medication. Showering/Bathing: May Shower Wound/Incision Care: Change Dressing Daily (BID wound care. ) Notify Provider of: Fever, Increased Pain, Swelling and Redness, Drainage, Nausea and/or Vomiting - Discharge Plan Prescriptions/Med Rec: Insulin Aspart [NovoLOG] 13 unit SUBCUT TIDAC #5 pen Insulin Detemir [Levemir] 40 unit SUBCUT DAILY #5 pen Home Medications: Home Meds OLANZapine [ZyPREXA] 15 mg PO DAILY 02/18/14 [History] QUEtiapine [SEROquel] 800 mg PO BEDTIME 02/18/14 [History] Albuterol Sulfate [Proair Hfa] 2 inh INH ASDIRECTED PRN 10/26/14 [History] ALPRAZolam [Xanax] 1 mg PO QID PRN 05/26/16 [History] Benztropine [Cogentin] 2 mg PO BEDTIME 05/26/16 [History] QUEtiapine [SEROquel] 25 - 50 mg PO TID PRN 09/12/17 [History] carBAMazepine [Carbamazepine] 600 mg PO BEDTIME 09/12/17 [History] Benztropine [Cogentin] 2 mg PO BEDTIME tablet 09/15/17 [Rx] Clindamycin HCl [Cleocin] 600 mg PO Q8H cap 09/15/17 [Rx] Ibuprofen [IJD: Ibuprofen] 800 mg PO Q8H tablet 09/15/17 [Rx] Insulin Aspart [NovoLOG] 13 unit SUBCUT TIDAC #5 pen 09/15/17 [Rx] Insulin Detemir [Levemir] 40 unit SUBCUT DAILY #5 pen 09/15/17 [Rx] Lactobacillus Rhamnosus GG [Culturelle] 2 cap PO BID cap 09/15/17 [Rx] OLANZapine [ZyPREXA] 15 mg PO BEDTIME tablet 09/15/17 [Rx] QUEtiapine [SEROquel] 200 mg PO BEDTIME tablet 09/15/17 [Rx] QUEtiapine [SEROquel] 600 mg PO BEDTIME tablet 09/15/17 [Rx] SUMAtriptan [Imitrex] 25 mg PO Q2H PRN tablet 09/15/17 [Rx] carBAMazepine [TEGretol Tab] 600 mg PO BEDTIME tablet 09/15/17 [Rx] Referrals: Jane Darnell [Registered Dietitian] - 10/23/17 2:00 pm ([facility]) Yobani Amezcua MD [Physician] - 09/22/17 1:40 pm - Discharge Summary/Plan Comment DC Time >30 min.: Yes Discharge Summary/Plan Comment: See above narrative. - Patient Data Vitals - Most Recent: Last Vital Signs Temp 96.1 F 09/15/17 11:00 Pulse 102 H 09/15/17 11:00 Resp 18 09/15/17 11:00 BP 117/87 09/15/17 11:00 Pulse Ox 94 L 09/15/17 11:00 Weight - Most Recent: 184 lb I&O - Last 24 hours: Intake & Output 09/14/17 09/15/17 09/15/17 22:59 06:59 14:59 Intake Total 1030 740 960 Balance 1030 740 960 Lab Results - Last 24 hrs: Laboratory Results - last 24 hr 09/15/17 09/15/17 Range/Units 04:50 04:50 WBC 5.8 (4.5-11.0) K/uL RBC 4.48 (3.30-5.50) M/uL Hgb 14.0 (12.0-15.0) g/dL Hct 41.3 (36.0-48.0) % MCV 92 (80-98) fL MCH 31 (27-31) pg MCHC 34 (32-36) % Plt Count 258 (150-400) K/uL Sodium 137 L (140-148) mmol/L Potassium 4.6 (3.6-5.2) mmol/L Chloride 100 (100-108) mmol/L Carbon Dioxide 28 (21-32) mmol/L Anion Gap 13.6 (5.0-14.0) mmol/L BUN 15 (7-18) mg/dL Creatinine 0.6 (0.6-1.0) mg/dL Est Cr Clr Drug Dosing 123.30 mL/min Estimated GFR (MDRD) > 60 (>60) Glucose 384 H (74-106) mg/dL Calcium 8.7 (8.5-10.1) mg/dL Total Bilirubin 0.1 L (0.2-1.0) mg/dL AST 46 H (15-37) U/L ALT 180 H (12-78) U/L Alkaline Phosphatase 431 H (46-116) U/L Total Protein 6.4 (6.4-8.2) g/dL Albumin 2.7 L (3.4-5.0) g/dL Globulin 3.7 H (2.3-3.5) g/dL Albumin/Globulin Ratio 0.7 L (1.2-2.2) Med Orders - Current: Current Medications Hydrocodone Bitart/Acetaminophen ([place] 325-5 Mg) 1 - 2 tab PO Q4H PRN PRN Reason: Pain Last Admin: 09/15/17 12:25 Dose: 2 tab Alprazolam (Xanax) 1 mg PO TID PRN PRN Reason: ANXIETY Last Admin: 09/15/17 07:29 Dose: 1 mg Benztropine Mesylate (Cogentin) 2 mg PO BEDTIME [facility] Last Admin: 09/14/17 21:23 Dose: 2 mg Carbamazepine (Tegretol Tab) 600 mg PO BEDTIME [facility] Last Admin: 09/14/17 21:25 Dose: 600 mg Clindamycin HCl (Cleocin) 600 mg PO Q8H [facility] Last Admin: 09/15/17 07:33 Dose: 600 mg Ibuprofen (Motrin) 800 mg PO Q8H [facility] Last Admin: 09/15/17 07:33 Dose: 800 mg Insulin Aspart (Novolog) 0 unit SUBCUT QIDACANDBED [facility] PRN Reason: Protocol Last Admin: 09/15/17 12:20 Dose: 3 units Insulin Aspart (Novolog) 5 unit SUBCUT TIDAC [facility] Last Admin: 09/15/17 12:20 Dose: 5 units Insulin Detemir (Levemir) 40 unit SUBCUT DAILY [facility] Last Admin: 09/15/17 09:52 Dose: 40 units Lactobacillus Rhamnosus (Culturelle) 2 cap PO BID [facility] Nicotine (Habitrol) 21 mg TRDERM DAILY [facility] Last Admin: 09/15/17 09:51 Dose: Not Given Olanzapine (Zyprexa) 15 mg PO BEDTIME [facility] Last Admin: 09/14/17 21:25 Dose: 15 mg Quetiapine Fumarate (Seroquel) 600 mg PO BEDTIME [facility] Last Admin: 09/14/17 21:24 Dose: 600 mg Quetiapine Fumarate (Seroquel) 200 mg PO BEDTIME [facility] Last Admin: 09/14/17 21:24 Dose: 200 mg Sumatriptan Succinate (Imitrex) 25 mg PO Q2H PRN PRN Reason: MIGRAINE HEADACHE Discontinued Medications Hydromorphone HCl (Dilaudid Bread Panner 15 Mg In Ns 30 Ml) 0 mg IV ASDIRECTED PRN; Protocol PRN Reason: [employer]DE[employer]DE [employer]PER[employer] PAIN CONTROL Last Admin: 09/12/17 16:23 Dose: 15 mg Hydromorphone HCl (Dilaudid) 2 - 4 mg PO Q4H PRN PRN Reason: Pain Last Admin: 09/14/17 09:08 Dose: 4 mg Dextrose/Lactated Ringer's (Dextrose 5%-Lactated Ringers) 1,000 mls @ 50 mls/ hr IV ASDIRECTED [facility] Ceftriaxone Sodium 2 gm/ (Sodium Chloride) 50 mls @ 100 mls/hr IV Q12H [facility] Last Admin: 09/13/17 04:44 Dose: 100 mls/hr Vancomycin HCl 1.5 gm/ Sodium (Chloride) 250 mls @ 167 mls/hr IV ONETIME ONE Stop: 09/12/17 19:29 Last Admin: 09/12/17 18:59 Dose: 167 mls/hr Vancomycin HCl 1.25 gm/ Sodium (Chloride) 250 mls @ 167 mls/hr IV Q12H [facility] Last Admin: 09/14/17 06:09 Dose: 167 mls/hr Sodium Chloride (Normal Saline) 1,000 mls @ 500 mls/hr IV ASDIRECTED [facility] Stop: 09/13/17 11:46 Clindamycin Phosphate 600 mg/ (Sodium Chloride) 54 mls @ 100 mls/hr IV Q8H [facility] Stop: 09/14/17 23:33 Last Admin: 09/14/17 22:21 Dose: 100 mls/hr Influenza Virus Vaccine (Pharmacy To Dose - Influenza Vaccine) 1 each IM ONETIME ONE Stop: 09/15/17 09:01 Influenza Virus Vaccine (Fluzone Quad [id number]) 60 mcg IM .ONCE ONE Stop: 09/13/17 09:01 Last Admin: 09/13/17 17:25 Dose: 60 mcg Insulin Detemir (Levemir) 30 unit SUBCUT DAILY [facility] Last Admin: 09/14/17 12:14 Dose: 30 units Naloxone HCl (Narcan) 0.1 mg IV ASDIRECTED PRN PRN Reason: RESP DISTRESS Pneumococcal Polyvalent Vaccine (Pneumovax 23) 0.5 ml IM .ONCE ONE Stop: 09/15/17 09:01 Last Admin: 09/15/17 10:10 Dose: 0.5 ml *Q Meaningful Use (DIS) - VTE *Q VTE Criteria *Q: - Stroke *Q Stroke Criteria *Q: - AMI *Q AMI Criteria *Q:
== END 2017-09-15 14:40 | disposition home or self-care (01) | DRG 603 ==
LOC: JP.MS 15:17
PROVIDERS: ADMIT Surgery; ATTEND Surgery
DX: L02.412 Cutaneous abscess of left axilla (principal); L03.112 Cellulitis of left axilla; B95.61 Methicillin susceptible Staphylococcus aureus infection as the cause of diseases classified elsewhere; L73.2 Hidradenitis suppurativa; E11.9 Type 2 diabetes mellitus without complications; Z79.4 Long term (current) use of insulin; F41.9 Anxiety disorder, unspecified; F43.10 Post-traumatic stress disorder, unspecified; F31.9 Bipolar disorder, unspecified; G43.909 Migraine, unspecified, not intractable, without status migrainosus; Z23 Encounter for immunization; T38.3X6A Underdosing of insulin and oral hypoglycemic [antidiabetic] drugs, initial encounter; Z91.138 Patient's unintentional underdosing of medication regimen for other reason; Y92.9 Unspecified place or not applicable; R74.0 Nonspecific elevation of levels of transaminase and lactic acid dehydrogenase [LDH]; H54.7 Unspecified visual loss; Z88.5 Allergy status to narcotic agent; Z88.8 Allergy status to other drugs, medicaments and biological substances; J45.909 Unspecified asthma, uncomplicated
CPT/HCPCS: 36415; 76705; 76705-26; 80053; 80202; 82962; 83036; 83605; 85027; 90686; 90732; 94762; A9270-GY; G0008; G0009; J0696; J1170; J3370; J7050; S0077

== ENCOUNTER 2018-08-19 13:19 | Emergency (ER) | payer MEDICARE, MEDICAID ==
[2018-08-19 13:41] VITALS: BP 143/95
[2018-08-19] MEDS ORDERED: Lidocaine 1% 20 ML MDV INJECT ONE (13:51)
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
== END 2018-08-19 14:39 | disposition home or self-care (01) ==
LOC: JP.ED 13:19
DX: L02.414 Cutaneous abscess of left upper limb (principal); J45.909 Unspecified asthma, uncomplicated; Z88.8 Allergy status to other drugs, medicaments and biological substances; Z88.2 Allergy status to sulfonamides; Z88.1 Allergy status to other antibiotic agents; Z79.899 Other long term (current) drug therapy
CPT/HCPCS: 10060; 87070; 87077; 87205; 99283; 99284; J2001